=== PATIENT | male | born 1955 | race Caucasian/White ===

== ENCOUNTER 2020-06-02 13:08 | Observation (INO) | payer MEDICARE, MEDICAID ==
[~2020-06-02] VITALS: Ht 162.6 cm; Wt 56.8 kg
[2020-06-02] MEDS ORDERED: MOBIC7.5 MG PO (13:18)
[2020-06-02 13:25] LABS: BASOPHILS 0.3 % (0-2); EOSINOPHILS 0.3 % (0-7); HEMATOCRIT 44.9 % (42.0-54.0); HEMOGLOBIN 15.4 g/dL (13.5-17.5); IMMATURE GRANULOCYTES 0.1 % (0-5); LYMPHOCYTE ABS# 1.23 10x3/uL (1.32-3.57); LYMPHOCYTES 18.2 % (15-50); MCH 34.3 pg (26.0-34.0); MCHC 34.3 g/dL (31.0-37.0); MEAN PLATELET VOLUME 10.6 fL (7.4-10.4); MONOCYTES 10.7 % (2-11); NEUTROPHIL ABS# 4.74 10x3/uL (1.78-5.38); NEUTROPHILS 70.4 % (40-80); PLATELET COUNT 181 10x3/uL (130-400); RBC 4.49 10x6/uL (4.20-6.10); RDW 13.3 % (11.5-14.5); WBC 6.7 10x3/uL (4.8-10.8)
[2020-06-02 13:33] LABS: CALC OSMOLALITY 272 mosm/kg (275-300); CALCIUM 9.1 mg/dL (8.5-10.1); CARBON DIOXIDE 27.4 mmol/L (21.0-32.0); CHLORIDE - SERUM 101 mmol/L (98-107); CREATININE - SERUM 1.2 mg/dL (0.6-1.3); GLUCOSE 95 mg/dL (74-106); POTASSIUM - SERUM 4.4 mmol/L (3.5-5.1); SODIUM 136 mmol/L (136-145); UREA NITROGEN 16 mg/dL (7-18); eGFR NON AFRICAN AMERICAN 64 mL/min (90-120)
[2020-06-02 13:50] LABS: ALBUMIN 3.8 g/dL (3.4-5.0); ALKALINE PHOSPHATASE 54 U/L (30-120); ALT (SGPT) 13 U/L (10-68); CKMB 0.9 U/L (0.0-3.6); CREATINE KINASE 132 UL (21-232); MAGNESIUM - SERUM 2.1 mg/dL (1.8-2.4); PROTEIN - SERUM 7.3 g/dL (6.4-8.2); TROPONIN-I < 0.017 ng/mL (0.000-0.060)
[2020-06-02 14:08] LABS: APTT 25.9 SECONDS (22.8-39.4); INR 1.06 (0.85-1.17); PROTIME 12.8 SECONDS (11.6-15.0)
[2020-06-02 15:00] VITALS: BP 126/80
[2020-06-02 15:39] VITALS: BP 172/88
[2020-06-02 15:40] LABS: CKMB 0.6 U/L (0.0-3.6); CREATINE KINASE 104 UL (21-232)
[2020-06-02 15:45] LABS: TROPONIN-I < 0.017 ng/mL (0.000-0.060)
[2020-06-02 15:47] VITALS: BP 152/80
[2020-06-02 16:51] VITALS: BP 152/80; BMI 21.5
--- NOTE | 2020-06-02 17:06 | NUR ---
ASESSED PT AND INTRODUCED SELF. LAST BM YESTERDAY, VOIDS NORMALLY IN THE TOILET. NO WOUNDS. JUST SMALL SCABS ON ARMS. UP TO SIDE OF BED EATING DINNER. BREATH SOUNDS CLEAR OVER DIMINISHED. ON ROOM AIR. NO SWELLING IN EXTREMITIES. TOLERATING FOOD WELL. DENIES PAIN AND SOB. ADMISSION COMPLETED BY ENGRAVER MACHINE.
--- NOTE | 2020-06-02 18:45 | NUR ---
bedside shift report completed, pt denies any issues. call light in reach. no distress noted. will continue to monitor
[2020-06-02 20:00] VITALS: BP 102/72
--- NOTE | 2020-06-02 20:50 | NUR ---
ekg complete per order, pt denies any issues, no distress noted, will contunue to monitor
[2020-06-02 22:31] LABS: CKMB 0.3 U/L (0.0-3.6); CREATINE KINASE 102 UL (21-232)
[2020-06-02 22:32] LABS: TROPONIN-I < 0.017 ng/mL (0.000-0.060)
[2020-06-03] VITALS: BP 114/84
[2020-06-03 04:00] VITALS: BP 149/83
[2020-06-03 04:46] LABS: BASOPHILS 0.3 % (0-2); HEMATOCRIT 44.5 % (42.0-54.0); HEMOGLOBIN 14.9 g/dL (13.5-17.5); LYMPHOCYTE ABS# 1.21 10x3/uL (1.32-3.57); LYMPHOCYTES 30.6 % (15-50); MCH 33.6 pg (26.0-34.0); MCHC 33.5 g/dL (31.0-37.0); MCV 100.5 fL (80.0-100.0); MEAN PLATELET VOLUME 10.8 fL (7.4-10.4); MONOCYTES 11.6 % (2-11); NEUTROPHIL ABS# 2.24 10x3/uL (1.78-5.38); NEUTROPHILS 56.5 % (40-80); PLATELET COUNT 166 10x3/uL (130-400); RBC 4.43 10x6/uL (4.20-6.10); RDW 13.4 % (11.5-14.5)
[2020-06-03 05:28] LABS: ALBUMIN 3.2 g/dL (3.4-5.0); ALKALINE PHOSPHATASE 47 U/L (30-120); ALT (SGPT) 10 U/L (10-68); BILIRUBIN - TOTAL 0.68 mg/dL (0.2-1.3); CALC OSMOLALITY 279 mosm/kg (275-300); CALCIUM 8.5 mg/dL (8.5-10.1); CARBON DIOXIDE 28.7 mmol/L (21.0-32.0); CHLORIDE - SERUM 105 mmol/L (98-107); CKMB 0.4 U/L (0.0-3.6); CREATINE KINASE 100 UL (21-232); CREATININE - SERUM 1.1 mg/dL (0.6-1.3); GLUCOSE 84 mg/dL (74-106); MAGNESIUM - SERUM 2.2 mg/dL (1.8-2.4); POTASSIUM - SERUM 4.1 mmol/L (3.5-5.1); PROTEIN - SERUM 6.3 g/dL (6.4-8.2); SODIUM 140 mmol/L (136-145); UREA NITROGEN 17 mg/dL (7-18); eGFR NON AFRICAN AMERICAN 71 mL/min (90-120)
[2020-06-03 05:29] LABS: TROPONIN-I < 0.017 ng/mL (0.000-0.060)
[2020-06-03 08:19] VITALS: BP 160/70
[2020-06-03 09:08] VITALS: Ht 162.6 cm; Wt 56.8 kg
[2020-06-03 09:54] LABS: CKMB 0.4 U/L (0.0-3.6); CREATINE KINASE 104 UL (21-232); TROPONIN-I < 0.017 ng/mL (0.000-0.060)
[2020-06-03 12:16] VITALS: BP 130/72
[2020-06-03 16:06] VITALS: BP 125/74
--- NOTE | 2020-06-03 19:02 | NUR ---
pt lying in bed, awake alert dneis issues. no distress noted pt advised NPO after MN for stress test tomorroe he reports he is aware
[2020-06-03 20:00] VITALS: BP 140/79
[2020-06-04 04:00] VITALS: BP 154/89
[2020-06-04 06:06] LABS: BASOPHILS 0.3 % (0-2); EOSINOPHILS 0.8 % (0-7); HEMATOCRIT 44.3 % (42.0-54.0); HEMOGLOBIN 14.7 g/dL (13.5-17.5); LYMPHOCYTE ABS# 0.85 10x3/uL (1.32-3.57); LYMPHOCYTES 21.7 % (15-50); MCH 33.5 pg (26.0-34.0); MCHC 33.2 g/dL (31.0-37.0); MCV 100.9 fL (80.0-100.0); MEAN PLATELET VOLUME 10.7 fL (7.4-10.4); MONOCYTES 13.6 % (2-11); NEUTROPHIL ABS# 2.49 10x3/uL (1.78-5.38); NEUTROPHILS 63.6 % (40-80); PLATELET COUNT 157 10x3/uL (130-400); RBC 4.39 10x6/uL (4.20-6.10); RDW 13.3 % (11.5-14.5); WBC 3.9 10x3/uL (4.8-10.8)
[2020-06-04 06:33] LABS: ALBUMIN 3.2 g/dL (3.4-5.0); ALKALINE PHOSPHATASE 43 U/L (30-120); ALT (SGPT) 8 U/L (10-68); BILIRUBIN - TOTAL 0.55 mg/dL (0.2-1.3); CALC OSMOLALITY 278 mosm/kg (275-300); CALCIUM 8.7 mg/dL (8.5-10.1); CARBON DIOXIDE 26.9 mmol/L (21.0-32.0); CHLORIDE - SERUM 104 mmol/L (98-107); CREATININE - SERUM 0.9 mg/dL (0.6-1.3); GLUCOSE 93 mg/dL (74-106); MAGNESIUM - SERUM 2.1 mg/dL (1.8-2.4); POTASSIUM - SERUM 4.1 mmol/L (3.5-5.1); SODIUM 140 mmol/L (136-145); UREA NITROGEN 13 mg/dL (7-18); eGFR NON AFRICAN AMERICAN 90 mL/min (90-120)
[2020-06-04 08:00] VITALS: BP 140/72
[2020-06-04 11:00] VITALS: BP 162/79
[2020-06-04] MEDS ORDERED: LISINOPRIL5 MG PO (13:56)
[2020-06-04] MEDS ORDERED: BAYER CHEWABLE81 MG PO (13:56)
--- NOTE | 2020-06-04 14:56 | NUR ---
DISCHARGE INSTRUCTIONS EXPLAINED AND PROVIDED TO PATIENT. PATIENT VERBALIZED UNDERSTANDING. DISCHARGED VIA AMBULATION WITH .
== END 2020-06-04 15:03 | disposition home or self-care (01) ==
LOC: D.ER 13:08 → OBSVTIME 15:35 → D.M2 15:35
PROVIDERS: Family Medicine; ADMIT Emergency Medicine; ATTEND Emergency Medicine
DX: R07.89 Other chest pain (principal); F17.200 Nicotine dependence, unspecified, uncomplicated; I10 Essential (primary) hypertension; I20.0 Unstable angina